=== PATIENT | male | born 1980 | race Caucasian/White ===

== ENCOUNTER 2021-07-25 04:12 | Emergency (ER) | payer OTHER, SELFPAY ==
--- NOTE | 2021-07-25 03:22 | XRR_ITS ---
PROCEDURE INFORMATION: Exam: XR Chest Exam date and time: 07/25/2021 3:22 AM Age: 41 years old Clinical indication: Other: Obstruction in throat; Patient HX: PT given 25 ml omnipaque just prior to xray, checking for obstruction. ; Additional info: With gastrografin TECHNIQUE: Imaging protocol: XR of the chest. Views: 1 view. COMPARISON: CR Chest 2 views* [id number] 10/27/2015 3:59 PM FINDINGS: Lungs: No CHF/pulmonary edema. Visible lungs appear essentially clear. Pleural spaces: No visible pneumothorax. No definite pleural fluid. Heart/Mediastinum: Heart size is within normal limits. Bones/joints: No significant acute finding. Soft tissues: Patient reportedly received oral contrast prior to the exam. Now obvious contrast visible in the chest or lower neck on the provided images. XR/XR chest 1V portable [id number] IMPRESSION: 1. Essentially unremarkable single view chest. 2. Other details/findings discussed above. Radiation Dose CTDIVOL = (mGy): DLP = (mGy-cm)
[2021-07-25 04:19] VITALS: BP 140/102; PULSE 95; RESP 20; TEMP 36.9; O2SAT 90; BMI 28.8
--- NOTE | 2021-07-25 04:32 | W.ED.GENADLT ---
HPI - General Adult General: Chief complaint: General Medical Stated complaint: vomiting, chest pain Time Seen by Provider: 07/25/21 04:25 History of Present Illness: HPI narrative: 41-year-old male who around 7 or 8:00 was eating steak, and believes he had a piece get stuck in his esophagus. He notes he has not tolerated oral liquid intake at this point. He has some saliva coming up now and then. He has mild discomfort in his chest. He has vomited several times. He has had this problem before, but can always get it to go down at home. Takes [id number] medications for reflux. Onset (ago): hour(s) Location: chest Radiation: non-radiation Severity: mild Quality: aching Pain Consistency: constant Relieving factors: none Associated symptoms: Reports chest pain, nausea and vomiting; Deny confusion, cough, diaphoresis, dyspnea, fevers/chills or palpitations Review of Systems Const: Denies: fever(s) or diaphoresis Card: Reports: chest pain; Denies: palpitations Resp: Denies: dyspnea, productive cough or non-productive cough GI: Reports: nausea and vomiting; Denies: abdominal pain Neuro: Denies: confusion Physical Exam Const: COMMON NORMALS: no acute distress, patient oriented x3 and alert GENERAL APPEARANCE: cooperative Chest: COMMONS NORMALS: normal inspection of the chest Resp: COMMON NORMALS: normal respiratory effort, No use of accessory muscles and clear to auscultation bilaterally AUSCULTATION: clear to auscultation bilaterally Cardio: COMMON NORMALS: regular rate and regular rhythm RATE: regular rate RHYTHM: regular rhythm GI: COMMON NORMALS: Normal to inspection, nondistended, normoactive bowel sounds present, Soft to palpation and non-tender PALPATION: Yes Soft to palpation Neuro: COMMON NORMALS: patient oriented x3 SENSORIUM/ORIENTATION: Yes alert Course Vital Signs: Vital signs: Vital Signs Temperature 98.4 F 07/25/21 04:19 Pulse Rate 110 H 07/25/21 05:44 Respiratory Rate 18 07/25/21 05:44 Blood Pressure 149/104 07/25/21 05:44 Pulse Oximetry 95 07/25/21 05:44 MDM - General Adult MDM Narrative: Medical decision making narrative: 41-year-old male with esophageal food bolus. He was given glucagon IV, nitroglycerin, and checked a cola with good results. He is now tolerating oral liquids. He no longer has discomfort. He was mildly nauseated, so he was given Zofran which improved this as well. X-ray shows no remaining Gastrografin/dye in the esophagus following the trial. There is no definite evidence of rupture. He will be allowed home. Surgery follow-up. Discharge Plan Discharge Patient Disposition: Home Clinical Impression: Esophageal obstruction due to food impaction Condition: Stable Prescriptions: No Action amlodipine 5 mg PO DAILY RF: 0 metoprolol succinate 100 mg PO DAILY RF: 0 Discharge Orders: Discharge ED (Routine); Ordered 07/25/21 Ordered By: Jerry Boothe Referrals: Mina Shane MD [Physician] - 4-7 days Alverto Smiley DO [Primary Care Provider] - Discharge Diet: Advance as tolerated and Clear Liquid Discharge Activity: Increase activity as tolerated Patient Instructions: Food Impaction (ED) Activity Restrictions/Additional Instructions: A case management referral has been placed for an outpatient surgery appointment. You should hear from them by Monday. Return for worsening chest discomfort, vomiting liquids, Blood in vomitus or stool, fever, any other concerning symptoms. Coding Level of Care Code ED Acute Dialysis Registered Nurse for Chg Fwd Exam Detailed
[2021-07-25] MEDS: nitroglycerin 0.4 mg sublingual Tablet SUBLINGUAL (04:42)
[2021-07-25] MEDS: ondansetron 2 mg/ML SDV 2 mL 4 MG IVP (05:05)
[2021-07-25 05:44] VITALS: BP 149/104; PULSE 110; RESP 18; O2SAT 95
--- NOTE | 2021-07-26 14:46 | DCPLANNER ---
manager distribution center had message to schedule a follow up appointment for patient with general surgery. manager distribution center emailed patients information to Vamsi at [facility] General Surgery / ENT clinic. Patients information will be printed and reviewed. Clinic will call patient with appointment information.
--- NOTE | 2021-07-27 07:52 | DCPLANNER ---
Patient has an appointment scheduled for Monday, August 02, 2021 at 3:[address] Shane at [facility] General Surgery clinic. Clinic will call patient with appointment information.
--- NOTE | 2021-08-05 16:32 | DCPLANNER ---
Patient had a follow up appointment scheduled for 08.02.[address] Shane at general surgery - patient did attend appointment.
== END 2021-07-25 05:47 | disposition home or self-care (01) ==
PROVIDERS: Emergency Provider Emergency Medicine; PCP Family Medicine
DX: K22.2 Esophageal obstruction (principal)
CPT/HCPCS: 71045; 96374; 96375; 99283; J1610; J2405

== ENCOUNTER → 2021-08-02 15:46 | Outpatient (BNVA) | payer OTHER, SELFPAY | PROVIDERS: PCP Family Medicine; Referring Provider Emergency Medicine; Visit Provider Surgery | DX: R13.10 Dysphagia, unspecified (principal); Z20.822 Contact with and (suspected) exposure to COVID-19 | CPT/HCPCS: 87635 ==

== ENCOUNTER 2021-08-09 09:02 | Day surgery (SDC) | payer OTHER, SELFPAY ==
[2021-08-05 14:14] VITALS: BMI 17.5
--- NOTE | 2021-08-09 09:14 | W.PM.OPSUD ---
Surgery/Procedure H&P Update DATE OF PROCEDURE: August 09, 2021 DATE H&P PERFORMED: 08/02/21 H&P UPDATE INFORMATION: I have reviewed H&P completed within last 30 days, I have examined patient prior to procedure and No changes to prior documentation PLANNED PROCEDURE: Operation Date: 08/09/21 10:30 Proposed Procedures p EGD Dilation W/ Balloon 58999 R13.10(Not Applicable) - Mina Shane MD
[2021-08-09 09:26] VITALS: BP 161/107; PULSE 85; RESP 18; TEMP 36.1; O2SAT 97
[2021-08-09] MEDS: sodium chloride 0.9% 1,000 ML 30 ML IV (09:33)
--- NOTE | 2021-08-09 09:37 | ANES.PREANE2 ---
Pre-Anesthetic Assessment Pre-Anesthetic Assessment: Height/Weight: Height 1.75 m Weight 53.977 kg Temp Pulse Resp BP Pulse Ox 97.0 F L 85 18 161/107 97 08/09/21 09:26 08/09/21 09:26 08/09/21 09:26 08/09/21 09:26 08/09/21 09:26 Preop Diagnosis: GERD Proposed Procedure: Operation Date: 08/09/21 10:30 Proposed Procedures p EGD Dilation W/ Balloon 64772 R13.10(Not Applicable) - Mina Shane MD Was Beta Rola taken within 24 hours: Yes Was Clonidine taken within 24 hours: N/A Last intake: Intake Last Liquid Date 08/08/21 Last Liquid Time 23:00 Last Solid Date 08/08/21 Last Solid Time 19:30 Last Intake: 23:00 Social: Social History: No alcohol and No tobacco Exam: Pre-Anes Outpt Exam: alert, oriented x 3, clear to auscultation bilaterally and regular rate & rhythm Airway: Submandibular: WNL Cervical ROM: WNL MP: 2 Dentition: Full Pulmonary: Pulmonary: None reported CV/HEM: CV/HEM: HTN : : None reported Hepatic: Hepatic: None reported GI: GI: GERD Metabolic: Metabolic: None reported Musc/skel: Musc/skel: None reported Neuropsych: Neuropsych: None reported Anesthetic Plan: ASA status: 2 Anesthesia: MAC Risk of > 500 ml blood loss (7ml/kg in children): No Meds/Allergies Current Medications: Current Medications Generic Name Dose Route Start Last Admin Trade Name Freq PRN Reason Stop Dose Admin Sodium Chloride 1,000 mls @ 30 ml s/hr 08/09/21 09:30 08/09/21 09:33 Sodium Chloride 0.9% IV 08/10/21 09:29 30 mls/hr .Q24H PATRIZIA Administration PFSH Anesthesia PFSH: Medical History (Updated 08/02/21 @ 15:24 by Mina Shane MD) Hypertension Family History Other Diabetes Hypertension Stroke Social History Smoking and tobacco status: never smoked Data Anesthesia Cardiac Studies: No Data to Display
[2021-08-09 10:57] VITALS: BP 124/80; PULSE 93; RESP 16; TEMP 36.1; O2SAT 96
[2021-08-09 11:15] VITALS: BP 125/80; PULSE 86; RESP 18; O2SAT 100
--- NOTE | 2021-08-09 14:54 | ANE.PACU2 ---
Inpatient post-anesthesia follow up: Airway intact: Yes Vital signs: Temperature 97 F Pulse Rate 86 Respiratory Rate 18 Blood Pressure 125/80 Pulse Oximetry 100 Oxygen Delivery Me thod Room Air Oxygen Flow Rate 2 Fraction of Inspir ed Oxygen Hydration adequate: Yes Nausea and vomiting: No Pain level: 2 Mental status: Baseline
== END 2021-08-09 11:22 | disposition home or self-care (01) ==
PROVIDERS: PCP Family Medicine; Visit Provider Surgery
PROC: 0DJ08ZZ Inspection of Upper Intestinal Tract, Via Natural or Artificial Opening Endoscopic (ICD-10-PCS; CPT 43235; principal; 2021-08-09 10:30)
DX: R13.10 Dysphagia, unspecified (principal); K22.2 Esophageal obstruction; K29.70 Gastritis, unspecified, without bleeding; I10 Essential (primary) hypertension; Z82.49 Family history of ischemic heart disease and other diseases of the circulatory system
CPT/HCPCS: 43239; 43251; 88305; 96360; 96361; J2704; J7030

== ENCOUNTER → 2023-11-07 08:32 | Outpatient (BNVA) | payer SELFPAY | PROVIDERS: PCP Family Medicine; Visit Provider Family Medicine | DX: Z13.6 Encounter for screening for cardiovascular disorders (principal); I10 Essential (primary) hypertension; Z00.00 Encounter for general adult medical examination without abnormal findings | CPT/HCPCS: 80053; 80061 ==

== ENCOUNTER → 2024-10-29 08:13 | Outpatient (BNVA) | payer OTHER, SELFPAY | PROVIDERS: PCP Family Medicine; Visit Provider Family Medicine | DX: Z13.6 Encounter for screening for cardiovascular disorders (principal); I10 Essential (primary) hypertension; Z00.00 Encounter for general adult medical examination without abnormal findings; R53.83 Other fatigue | CPT/HCPCS: 80053; 80061 ==